=== PATIENT | male | born 1975 | race Caucasian/White ===

== ENCOUNTER 2021-06-17 23:21 | Emergency (ER) | payer OTHER ==
[~2021-06-17] VITALS: Ht 165.1 cm; Wt 68.0 kg
[~2021-06-17 23:21] MED LIST: MEDROLDOSEPACK PO; NOHOMEMEDICATIONS; ZPAK PO
[2021-06-17 23:49] VITALS: BP 143/102
== END 2021-06-17 23:50 ==
LOC: M.ERS 23:21
DX: Z02.89 Encounter for other administrative examinations (principal)